=== PATIENT | female | born 1970 | race Two or more races ===

== ENCOUNTER 2017-05-02 12:13 | Emergency (ER) | payer MEDICAID ==
[~2017-05-02] VITALS: Ht 160 cm; Wt 114.8 kg
[2017-05-02 12:21] VITALS: Ht 160 cm; Wt 114.8 kg
[2017-05-02 15:18] VITALS: BP 137/80
== END 2017-05-02 15:18 | disposition home or self-care (01) ==
LOC: ED 12:13
DX: J11.1 Influenza due to unidentified influenza virus with other respiratory manifestations (principal); I10 Essential (primary) hypertension; Z98.51 Tubal ligation status
CPT/HCPCS: J1885

== ENCOUNTER 2018-05-06 17:09 | Emergency (ER) | payer OTHER ==
[~2018-05-06] VITALS: Ht 157.5 cm; Wt 111.6 kg
[2018-05-06 17:17] VITALS: Ht 157.5 cm; Wt 111.6 kg
[2018-05-06 18:45] VITALS: BP 147/88
== END 2018-05-06 18:50 | disposition home or self-care (01) ==
LOC: ED 17:09
DX: L23.9 Allergic contact dermatitis, unspecified cause (principal); I10 Essential (primary) hypertension